=== PATIENT | male | born 1970 | race Caucasian/White ===

== ENCOUNTER 2019-02-10 20:33 | Emergency (ER) | payer OTHER ==
[~2019-02-10] VITALS: Ht 185.4 cm; Wt 77.1 kg
[2019-02-10 20:42] VITALS: Ht 185.4 cm; Wt 77.1 kg
[2019-02-10 21:10] VITALS: BP 115/90
== END 2019-02-10 21:10 | disposition other institution (70) ==
LOC: ED 20:33
DX: Z02.89 Encounter for other administrative examinations (principal)